=== PATIENT | female | born 1995 | race African-American/Black ===

== ENCOUNTER 2018-08-16 13:36 | Emergency (ER) | payer MEDICAID ==
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
--- OUTSIDE RECORDS SUMMARY | 2018-08-16 14:17 | XMS REPORT | Continuity of Care Document ---
:1995 External Reference #:[id number] Author Name Liza Sanderson Care Team Providers Name Role Phone [facility] Primary Care Physician Unavailable Payers Type Date Identification Numbers Payment Provider Subscriber Policy Number: [id number] Medicaid [employer] Name: 1 1 [address] PayID: [id number] [place] [address] Advance Directives Description No Information Available Problems Date Description Provider Status Onset: 06/01/2018 Binge eating disorder Main Wagner MD Active Onset: 06/01/2018 Posttraumatic stress disorder Main Wagner MD Active Onset: 06/01/2018 Anxiety state Main Wagner MD Active Onset: 06/01/2018 Recurrent major depressive episodes Main Wagner MD Active Family History Description No Information Available Social History Type Date Description Comments Sex Unknown Tobacco Use Start: Unknown Patient has never smoked Smoking Status Reviewed: 07/23/18 Patient has never smoked Allergies, Adverse Reactions, Alerts Description No Known Drug Allergies Medications Medication Date Status Form Strength Qnty SIG Indications Ordering Provider Plan B One-Step Active Tablets 1.5mg 1tabs take one Z30.012 [facility] 018 tablet Senner, DO jacy Sertraline HCL Active Tablets 100mg 60tabs 2 by F33.9 [facility] 018 mouth Senner, DO twice daily Sertraline HCL Hx Tablets 100mg 30tabs take 1 F33.9 Jerica Loera - tablet daily. 018 No Active Hx Unknown Medications 018 - 018 Sertraline HCL Hx Tablets 50mg 60tabs take 2 F33.9 Jerica Loera - tabs daily. 018 Immunizations Description No Information Available Vital Signs Date Vital Result Comment 07/23/2018 11:17am Weight 157.00 lb Heart Rate 70 /min BP Systolic 118 mmHg BP Diastolic 78 mmHg Respiratory Rate 16 /min Body Temperature 98.4 F Pain Level 0 O2 % BldC Oximetry 98 % 06/01/2018 3:28pm Height 67 inches 5'7" Weight 164.00 lb Heart Rate 68 /min BP Systolic 112 mmHg BP Diastolic 74 mmHg Respiratory Rate 16 /min Body Temperature 97.7 F Pain Level 6 body ache, O2 % BldC Oximetry 98 % BMI (Body Mass Index) 25.7 kg/m2 Results Test Date Facility Test Result H/L Range Note Order 07/23/2018 [facility] Echocardiogram, <pending> [address] [address] [phone] Procedures Description No Information Available Encounters Type Date Location Provider Dx Diagnosis Office Visit 07/23/2018 [facility] Bronson, F33.9 Major depressive 11:00a [facility] DO disorder, recurrent, unspecified F41.9 Anxiety disorder, unspecified F43.12 Post-traumatic stress disorder, chronic E61.1 Iron deficiency Z30.012 Encounter for prescription of emergency contraception R07.9 Chest pain, unspecified Office Visit 06/01/2018 3:00p [facility] Main Wagner F33.9 Major depressive [facility] MD disorder, recurrent, unspecified F41.9 Anxiety disorder, unspecified F43.12 Post-traumatic stress disorder, chronic F50.81 Binge eating disorder Plan of Treatment 07/23/2018 - [facility] Bronson DOF33.9 Major depressive disorder, recurrent, unspecifiedNew Medication:Sertraline HCL 100 mg - 2 by mouth twice zcyniJ52.9 Anxiety disorder, inbqbwtufoyS99.12 Post-traumatic stress disorder, acqrwwqS13.1 Iron nhjdmxjpxaM97.012 Encounter for prescription of emergency contraceptionNew Medication:Plan B One-Step 1.5 mg - take one tablet asapR07.9 Chest pain, unspecified
[2018-08-16 14:50] LABS: ABS Basophils 0.1 10^3/ul (0-0.2); ABS Eosinophils 0.2 10^3/ul (0-0.6); ABS Lymphocytes 1.8 10^3/ul (1.0-4.8); ABS Monocytes 0.4 10^3/ul (0-0.8); ABS Neutrophils 4.2 10^3/ul (1.5-7.7); ABS Nucleated RBC 0 10^3/ul; Eosinophil % 2.7 %; Hematocrit 37 % (35-47); Hemoglobin 12.5 g/dl (12.0-16.0); Lymphocyte % 27.7 %; Mean Corpuscular HGB Conc 33 g/dl (31-36); Mean Corpuscular Hemoglobin 29 pg (27-31); Mean Corpuscular Volume 86 fL (80-97); Nucleated Red Blood Cells % 0; Platelet Count 219 10^3/ul (150-450); Red Blood Count 4.36 10^6/ul (4.00-5.40); Red Cell Distribution Width 15 % (10.5-15); White Blood Count 6.7 10^3/ul (3.5-10.8)
[2018-08-16 14:52] LABS: Urine Appearance Cloudy; Urine Bacteria Absent (Absent); Urine Bilirubin Negative (Negative); Urine Blood Negative (Negative); Urine Color Yellow; Urine Glucose Negative (Negative); Urine Ketones Negative (Negative); Urine Nitrite Negative (Negative); Urine Protein Negative (Negative); Urine Red Blood Cell Trace(0-2/hpf) (Absent); Urine Specific Gravity 1.025 (1.010-1.030); Urine Urobilinogen Negative (Negative); Urine White Blood Cell 1+(6-10/hpf) (Absent)
[2018-08-16 15:36] LABS: ALT 12 U/L (7-52); AST 16 U/L (13-39); Albumin 4.4 g/dL (3.2-5.2); Albumin/Globulin Ratio 1.8 (1-3); Alkaline Phosphatase 28 U/L (34-104); Anion Gap 4 mmol/L (2-11); BUN/Creatinine Ratio 18.9 (8-20); Blood Urea Nitrogen 14 mg/dL (6-24); C Reactive Protein < 1.00 mg/L (<8.01); CO2 Carbon Dioxide 27 mmol/L (22-32); Calcium 9.5 mg/dL (8.6-10.3); Chloride 105 mmol/L (101-111); EGFR Non-African American 97.3 (>60); Globulin 2.5 g/dL (2-4); Glucose 74 mg/dL (70-100); Potassium 4.1 mmol/L (3.5-5.0); Sodium 136 mmol/L (135-145); Total Protein 6.9 g/dL (6.4-8.9)
[2018-08-16 15:42] LABS: HCG Pregnancy < 0.60 mIU/mL
[2018-08-16 17:12] VITALS: BP 118/60
--- NOTE | 2018-08-18 14:26 | PN ---
Progress Note - Progress Note Date of Service: 08/16/18 Note: Pt. seen in ED 08/16 for vaginal discharge. Cultures were obtained and are negative except for fabiana. I spoke with pt. today at 1442 and discussed results. Rx for diflucan sent to pharmacy. Pt. to f.u with CLINIC PHYSICIAN. Pt. understands and agrees with plan.
== END 2018-08-16 17:10 | disposition home or self-care (01) ==
LOC: ED 13:36
DX: R10.2 Pelvic and perineal pain (principal); N76.0 Acute vaginitis; R11.2 Nausea with vomiting, unspecified; R50.9 Fever, unspecified; Z32.02 Encounter for pregnancy test, result negative
CPT/HCPCS: 36415; 76856; 80053; 81003; 81015; 83605; 84702; 85025; 86140; 87086; 87480; 87491; 87510; 87591; 87661; 99282